=== PATIENT | male | born 1975 | race Two or more races ===

== ENCOUNTER → 2017-02-19 | Outpatient (CLI) | payer OTHER ==
--- NOTE | 2017-02-21 19:51 | SLEEPCENT ---
DATE OF PROCEDURE: 02/19/2017 REFERRING PHYSICIAN: Mary Ellen Moreno Nocturnal polysomnography was performed to assess for sleep physiology in this patient with a history of excessive somnolence and nonrestorative sleep. 8 hours and 12 minutes of data were reviewed. There were 414 minutes of sleep identified. Sleep latency was prolonged at 54 minutes. Rapid eye movement (REM) latency was normal at 84 minutes. Sleep architecture showed fragmentation particularly early in the study. There were two REM periods appreciated. Overall sleep efficiency was 85%. REM time was reduced. The patient's EKG showed a sinus rhythm with an average heart rate of 52 beats per minute. Rate variability was seen surrounding respiratory events which ranged 42 to 62. EEG showed some coarsening in background consistent with medication effect (fluoxetine). No focal events were identified. There were 34 respiratory events identified of 10 seconds in duration or greater for an apnea-hypopnea index of 5.1. The events were obstructive in nature, more frequent in the supine posture, but not exclusive to that position. Arousals from respiratory events occurred 3.6 times per hour and oxygen desaturations were seen occasionally into the upper 80s. There was some limb activity early in the study. There were three trains of 30 events. Limb movement arousal index was borderline at 5.2. IMPRESSION: 1. 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 Apnea/hypopnea index 5.1. 2. Mild periodic limb movement disorder (G47.61). Limb movement arousal index 5.2. RECOMMENDATION: An initial approach of sleep position retraining for avoidance of the supine posture may be sufficient to address the patient's complaint. If sleep symptoms persist, referral back to the sleep disorder center for pressure therapy could be considered. Once respiratory issues have been addressed, if limb activity persists, interventions to reduce the frequency of arousals from limb events may help further improve the quality of the patient's sleep.
== END ==
LOC: M SLEEP 19:59
PROVIDERS: ATTEND Nurse Practitioner Adult Health
DX: G47.33 Obstructive sleep apnea (adult) (pediatric) (principal); G47.61 Periodic limb movement disorder